=== PATIENT | female | born 1995 ===

== ENCOUNTER 2016-08-31 07:24 | Emergency (ER) | payer BC ==
[2016-08-31 07:33] VITALS: BMI 22.8
[2016-08-31 07:38] VITALS: BP 141/81; PULSE 77; RESP 16; TEMP 97.9; O2SAT 100
--- NOTE | 2016-08-31 07:47 | ED PDOC ---
Arrival/HPI - General Chief Complaint: Female Genitourinary Time Seen by Provider: 08/31/16 07:46 Historian: Patient - History of Present Illness Narrative History of Present Illness (Text): 08/31/16 07:47 A 21 year old female, whose denies any past medical history, presents to the emergency department complaining of dysuria just once this morning. Patient notes 1 episode of loose stool but denies any fever, chills, nausea, vomiting, abdominal pain, urinary frequency, hematuria, vaginal bleeding, vaginal discharge, rash, back pain, chest pain, shortness of breath, cough. She does not feeling some gas. She does not really think this is a UTI but wanted to make sure given that she had dysuria once. She states she is in no current pain and has no symptoms currently. PMD: Dr. Rose Time/Duration: Other (This morning) Symptom Course: Resolved Quality: Other Context: Home Past Medical History - Provider Review Nursing Documentation Reviewed: Yes - Tetanus Immunization Tetanus Immunization: Up to Date - Past Medical History Past Medical History: No Previous - Psychiatric Hx Substance Use: No - Surgical History Other/Comment: lumpectomy. breast reduction - Anesthesia Hx Anesthesia: No Hx Anesthesia Reactions: No Hx Malignant Hyperthermia: No - Suicidal Assessment Feels Threatened In Home Enviroment: No Family/Social History - Physician Review Nursing Documentation Reviewed: Yes Family/Social History: No Known Family HX Smoking Status: Never Smoked Hx Alcohol Use: No Hx Substance Use: No Hx Substance Use Treatment: No Allergies/Home Meds Allergies/Adverse Reactions: Allergies No Known Allergies Allergy (Verified 08/31/16 07:33) Home Medications: Home Meds Medication Instructions Recorded Confirmed No Known Home Med 08/31/16 08/31/16 Review of Systems - Physician Review All systems were reviewed & negative as marked: Yes - Review of Systems Constitutional: absent: Fevers, Night Sweats Respiratory: absent: SOB, Cough Cardiovascular: absent: Chest Pain Gastrointestinal: Stool Changes (1 episode of loose stool). absent: Abdominal Pain, Nausea, Vomiting Genitourinary Female: Dysuria. absent: Frequency, Hematuria, Vaginal Bleeding, Vaginal Discharge, Other (rash) Musculoskeletal: absent: Back Pain Physical Exam - Physical Exam Narrative Physical Exam (Text): Constitutional: No acute distress. Head: Normocephalic. Atraumatic. Eyes: PERRL. ENT: Moist mucous membranes. Neck: Supple. Cardiovascular: Regular rate. Chest: No tenderness. Respiratory: Clear to auscultation bilaterally. GI: Soft. Nontender. Nondistended. Back: No CVA tenderness. Musculoskeletal: No tenderness or swelling of extremities. Skin: No rash. Neurologic: Alert, no focal deficit. Vital Signs Reviewed: Yes Vital Signs Temp Pulse Resp BP Pulse Ox 08/31/16 07:38 97.9 F 77 16 141/81 100 Temperature: Afebrile Blood Pressure: Normal Pulse: Regular Respiratory Rate: Normal Appearance: Positive for: Well-Appearing, Non-Toxic, Comfortable Pain Distress: None Mental Status: Positive for: Alert and Oriented X 3 Medical Decision Making ED Course and Treatment: 08/31/16 07:47 Impression: A 21 year old female with 1 episode of dysuria. Physical exam unremarkable. Plan: -- Urine culture and Urinalysis -- Reassess and disposition Progress Notes: 08/31/16 08:29 I have discussed the results and plan with the patient, who expresses understanding. She states she feels well with no symptoms. Patient in agreement with plan to be discharged home. Patient is stable for discharge. Patient was instructed to follow up with physician or return if symptoms worsen or new concerning symptoms arise. - Lab Interpretations Lab Results: Lab Results 08/31/16 07:58: Urine Color Yellow, Urine Appearance Clear, Urine pH 6.0, Ur Specific [place] 1.025, Urine Protein Negative, Urine Glucose (UA) Negative, Urine Ketones Negative, Urine Blood Negative, Urine Nitrate Negative, Urine Bilirubin Negative, Urine Urobilinogen 0.2, Ur Leukocyte Esterase Negative, Urine HCG, Qual Negative - Scribe Statement The provider has reviewed the documentation as recorded by the Candace Berg Provider Scribe Attestation: All medical record entries made by the Scribe were at my direction and personally dictated by me. I have reviewed the chart and agree that the record accurately reflects my personal performance of the history, physical exam, medical decision making, and the department course for this patient. I have also personally directed, reviewed, and agree with the discharge instructions and disposition. Disposition/Present on Arrival - Present on Arrival Any Indicators Present on Arrival: No History of DVT/PE: No History of Uncontrolled Diabetes: No Urinary Catheter: No History of Decub. Ulcer: No History Surgical Site Infection Following: None - Disposition Have Diagnosis and Disposition been Completed?: Yes Diagnosis: Dysuria Disposition: HOME/ ROUTINE Disposition Time: 08:29 Condition: STABLE Discharge Instructions (ExitCare): Dysuria (ED) Referrals: Valarie Rose DO [Primary Care Provider] - Follow up with primary
[2016-08-31 08:15] LABS: URINE BILIRUBIN NEGATIVE (NEGATIVE); URINE BLOOD NEGATIVE (NEGATIVE); URINE GLUCOSE (UA) NEGATIVE (NEGATIVE); URINE KETONE NEGATIVE (NEGATIVE); URINE LEUKOCYTE ESTERASE NEGATIVE Leu/uL (NEGATIVE); URINE PROTEIN NEGATIVE mg/dL (<30 mg/dL); URINE UROBILINOGEN 0.2 E.U./dL (<1 E.U./dL)
[2016-08-31 08:21] LABS: URINE APPEARANCE CLEAR (CLEAR); URINE COLOR YELLOW (YELLOW)
== END 2016-08-31 08:31 | disposition home or self-care (01) ==
LOC: ED 07:24
DX: R30.0 Dysuria (principal)